=== PATIENT | male | born 2000 | race African-American/Black ===

== ENCOUNTER 2020-05-29 14:02 | Emergency (ER) | payer SELFPAY ==
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
[2020-05-29 14:24] VITALS: BP 120/75; PULSE 90; RESP 16; TEMP 37.3; O2SAT 99
--- NOTE | 2020-05-29 14:29 | PC.NURSE ---
1429- Pt taken straight from triage to xray
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
[2020-05-29] MEDS: ACETAMINOPHEN 325 MG TABLET 650 MG PO (14:53)
--- NOTE | 2020-05-29 15:11 | PC.NURSE ---
1443- Contacted [facility] [employer] [phone], verified report was made with Luciano Rush.
== END 2020-05-29 15:24 | disposition home or self-care (01) ==
PROVIDERS: Emergency Provider Nurse Practitioner
DX: S09.92XA Unspecified injury of nose, initial encounter (principal); Y04.0XXA Assault by unarmed brawl or fight, initial encounter
CPT/HCPCS: 70160; 99203; A9270; G0463